=== PATIENT | female | born 1970 | race Hispanic/Latino ===

== ENCOUNTER 2021-03-13 19:46 | Inpatient (IN) | payer SELFPAY ==
[~2021-03-13] VITALS: Ht 162.6 cm; Wt 60.1 kg
[2021-03-13 19:56] VITALS: BP 131/73
[2021-03-13 20:33] LABS: ABG BASE EXCESS 3.7 mmol/L (-2.0-3.0); ABG HCO3 27.8 mmol/L (21.0-28.0); ABG OXYGEN SATURATION 94.6 % (95.0-99.0); ABG PCO2 40 mmHg (32-45)
[2021-03-13 20:44] LABS: BASOPHILS % (AUTO) 0.9 % (0.0-5.0); EOSINOPHILS % (AUTO) 9.3 % (0.0-8.0); HEMATOCRIT 45.6 % (36-48); LYMPHOCYTES % (AUTO) 39.3 % (21.0-51.0); MEAN CORPUSCULAR HEMOGLOBIN 28.8 pg (27.0-33.0); MEAN CORPUSCULAR HGB CONC 33.1 g/dL (32.0-36.0); MONOCYTES % (AUTO) 5.1 % (3.0-13.0); NEUTROPHILS % (AUTO) 45.3 % (40.0-77.0); PLATELET COUNT (AUTO) 228 K/uL (130-400); RED BLOOD CELL COUNT(AUTO) 5.24 MIL/uL (4.00-5.50); RED CELL DISTRIBUTION WIDTH 13.2 % (11.0-15.5); WHITE BLOOD COUNT (AUTO) 8.6 K/uL (4.8-10.8)
[2021-03-13] MEDS ORDERED: SOLU-MEDROL 125MG VIAL IVP ONE (21:00)
[2021-03-13 21:03] LABS: ALBUMIN 3.6 g/dL (3.5-5.0); CARBON DIOXIDE 29 mmol/L (21-32); CHLORIDE 103 mmol/L (101-111); CREATININE 1.1 mg/dL (0.5-1.5); GLOMERULAR FILTR. RATE CALC 56 mL/min (>60); GLUCOSE,RANDOM 182 mg/dL (70-105); SODIUM SERUM 142 mmol/L (136-145); UREA NITROGEN, BLOOD 16 mg/dL (7-18)
[2021-03-13 21:08] LABS: POTASSIUM 2.9 mmol/L (3.5-5.1)
[2021-03-13 21:10] LABS: ALANINE AMINOTRANSFERASE 21 U/L (12-78); ASPARTATE AMINOTRANSFERASE 17 U/L (10-37); BILIRUBIN,TOTAL 0.6 mg/dL (0.2-1.0); CREATINE KINASE, TOTAL 90 U/L (21-232); TOTAL PROTEIN, SERUM 6.6 g/dL (6.0-8.3)
[2021-03-13 21:11] LABS: CRP QUANTITATIVE < 2.00 mg/L (0.00-9.0)
[2021-03-13] MEDS: KCL 20 MEQ ERTAB PO ONE ×2 (21:25→22:20)
[2021-03-13] MEDS ORDERED: KCL 20 MEQ ERTAB PO ONE (21:30)
[2021-03-13] MEDS ORDERED: SOLU-MEDROL 125MG VIAL ONE (21:39)
[2021-03-13] MEDS ORDERED: ACETAMINOPHEN 325 MG TAB PO PRN ×2 (22:30)
[2021-03-13] MEDS ORDERED: ONDANSETRON 4MG INJ IV PRN (22:30)
[2021-03-13] MEDS ORDERED: NITROGLYCERIN 0.4 MG SL TAB SL PRN (22:30)
[2021-03-13 23:00] VITALS: BP 144/76
[2021-03-13] MEDS ORDERED: AZITHROMYCIN 500MG+NS 250ML 250 ML IV SCH (23:00)
[2021-03-13] MEDS ORDERED: AZITHROMYCIN 500MG VIAL IVPB SCH (23:00)
[2021-03-13] MEDS ORDERED: CEFTRIAXONE 1G VIAL IVP SCH (23:00)
[2021-03-13] MEDS ORDERED: 0.9% NACL 250ML IVPB SCH (23:00)
[2021-03-13] MEDS ORDERED: POTASSIUM CHLORIDE 10% ELIXIR 20 MEQ/15 ML UDCUP PO PRN (23:30)
[2021-03-13] MEDS ORDERED: MAGNESIUM 2GM PREMIX 50ML 50 ML IV SCH (23:30)
[2021-03-13] MEDS ORDERED: POTASSIUM CHLORIDE 20MEQ/100ML 100 ML IV PRN (23:30)
[2021-03-13] MEDS ORDERED: LIDOCAINE HCL-MPF 1% 2ML VIAL IV PRN (23:30)
[2021-03-13] MEDS: 0.9%NACL 1000ML 1,000 ML IV SCH (23:58)
[2021-03-14] VITALS (7 sets, daily range): BP systolic 108–150; BP diastolic 59–85
[2021-03-14] MEDS: IPRATROPIUM/ALBUTEROL SULFATE 3 ML SOLUTION IH SCH ×6 (01:54→21:56)
[2021-03-14] MEDS: KCL 20 MEQ ERTAB PO PRN ×2 (02:35→04:08)
[2021-03-14] MEDS: SOLU-MEDROL 40MG VIAL IVP SCH ×4 (03:45→21:11)
[2021-03-14 06:10] LABS: BASOPHILS % (AUTO) 0.4 % (0.0-5.0); EOSINOPHILS % (AUTO) 0.4 % (0.0-8.0); HEMATOCRIT 44.7 % (36-48); LYMPHOCYTES % (AUTO) 9.9 % (21.0-51.0); MEAN CORPUSCULAR HEMOGLOBIN 28.9 pg (27.0-33.0); MEAN CORPUSCULAR HGB CONC 32.4 g/dL (32.0-36.0); MEAN CORPUSCULAR VOLUME 89.2 fL (79-99); MONOCYTES % (AUTO) 0.9 % (3.0-13.0); PLATELET COUNT (AUTO) 224 K/uL (130-400); RED BLOOD CELL COUNT(AUTO) 5.01 MIL/uL (4.00-5.50); RED CELL DISTRIBUTION WIDTH 13.3 % (11.0-15.5); WHITE BLOOD COUNT (AUTO) 5.4 K/uL (4.8-10.8)
[2021-03-14 06:24] LABS: ALBUMIN 3.3 g/dL (3.5-5.0); BILIRUBIN,TOTAL 0.3 mg/dL (0.2-1.0); CREATININE 1.1 mg/dL (0.5-1.5); MAGNESIUM 2.1 mg/dL (1.80-2.40); POTASSIUM 4.1 mmol/L (3.5-5.1); TOTAL PROTEIN, SERUM 6.4 g/dL (6.0-8.3)
[2021-03-14] MEDS: LEVOFLOXACIN 500 MG/D5W 100 ML 100 ML IV SCH (06:58)
[2021-03-14] MEDS: FAMOTIDINE 20MG TAB PO SCH ×2 (07:48→21:11)
[2021-03-14] MEDS: ENOXAPARIN SODIUM 30 MG/0.3 ML SQ SCH (07:48)
[2021-03-14] MEDS: 0.9%NACL 1000ML 1,000 ML IV SCH (08:20)
[2021-03-14] MEDS ORDERED: PRED50TA2 PO (09:19)
[2021-03-14] MEDS ORDERED: ALBU18HF7 IH (09:19)
[2021-03-14] MEDS: INSULIN HUMULIN R 100 UNIT/ML 3ML SQ SCH ×2 (16:21→21:21)
[2021-03-15] VITALS (7 sets, daily range): BP systolic 120–152; BP diastolic 67–86
[2021-03-15] MEDS: IPRATROPIUM/ALBUTEROL SULFATE 3 ML SOLUTION IH SCH ×6 (01:23→22:24)
[2021-03-15] MEDS: SOLU-MEDROL 40MG VIAL IVP SCH ×3 (03:17→16:25)
[2021-03-15 04:10] LABS: BASOPHILS % (AUTO) 0.1 % (0.0-5.0); HEMATOCRIT 45.8 % (36-48); LYMPHOCYTES % (AUTO) 8.7 % (21.0-51.0); MEAN CORPUSCULAR HEMOGLOBIN 29.3 pg (27.0-33.0); MEAN CORPUSCULAR HGB CONC 32.3 g/dL (32.0-36.0); MEAN CORPUSCULAR VOLUME 90.7 fL (79-99); MONOCYTES % (AUTO) 2.2 % (3.0-13.0); NEUTROPHILS % (AUTO) 88.3 % (40.0-77.0); PLATELET COUNT (AUTO) 223 K/uL (130-400); RED BLOOD CELL COUNT(AUTO) 5.05 MIL/uL (4.00-5.50); RED CELL DISTRIBUTION WIDTH 13.2 % (11.0-15.5)
[2021-03-15 04:22] LABS: CREATININE 0.8 mg/dL (0.5-1.5); MAGNESIUM 2.1 mg/dL (1.80-2.40); PHOSPHORUS 3.1 mg/dL (2.5-4.9); POTASSIUM 3.7 mmol/L (3.5-5.1)
[2021-03-15 04:30] LABS: HEMOGLOBIN A1C 6.7 % (4.0-6.0)
[2021-03-15] MEDS: LEVOFLOXACIN 500 MG/D5W 100 ML 100 ML IV SCH (05:32)
[2021-03-15] MEDS: INSULIN HUMULIN R 100 UNIT/ML 3ML SQ SCH ×4 (06:08→20:53)
[2021-03-15] MEDS: FAMOTIDINE 20MG TAB PO SCH ×2 (09:02→20:49)
[2021-03-15] MEDS: KCL 20 MEQ ERTAB PO PRN ×2 (09:02→13:27)
[2021-03-15] MEDS: ENOXAPARIN SODIUM 30 MG/0.3 ML SQ SCH (09:03)
[2021-03-15] MEDS: MONTELUKAST SODIUM 10 MG TAB PO SCH (10:59)
[2021-03-15] MEDS: BUDESONIDE 0.5 MG/2 ML INH IH SCH (18:23)
[2021-03-15] MEDS ORDERED: MONTELUKAST SODIUM 10 MG TAB PO SCH (21:00)
[2021-03-16] MEDS: SOLU-MEDROL 40MG VIAL IVP SCH ×2 (00:27→08:28)
[2021-03-16] MEDS: IPRATROPIUM/ALBUTEROL SULFATE 3 ML SOLUTION IH SCH ×3 (03:01→14:46)
[2021-03-16 03:58] VITALS: BP 120/72
[2021-03-16] MEDS: LEVOFLOXACIN 500 MG/D5W 100 ML 100 ML IV SCH (05:39)
[2021-03-16] MEDS: INSULIN HUMULIN R 100 UNIT/ML 3ML SQ SCH ×3 (06:10→17:25)
[2021-03-16 06:43] LABS: BASOPHILS % (AUTO) 0.1 % (0.0-5.0); HEMATOCRIT 46.5 % (36-48); LYMPHOCYTES % (AUTO) 7.4 % (21.0-51.0); MEAN CORPUSCULAR HEMOGLOBIN 28.9 pg (27.0-33.0); MEAN CORPUSCULAR VOLUME 90.3 fL (79-99); MONOCYTES % (AUTO) 1.8 % (3.0-13.0); PLATELET COUNT (AUTO) 209 K/uL (130-400); RED BLOOD CELL COUNT(AUTO) 5.15 MIL/uL (4.00-5.50); RED CELL DISTRIBUTION WIDTH 13.5 % (11.0-15.5); WHITE BLOOD COUNT (AUTO) 11.5 K/uL (4.8-10.8)
[2021-03-16 07:08] LABS: CREATININE 0.7 mg/dL (0.5-1.5); POTASSIUM 4.1 mmol/L (3.5-5.1)
[2021-03-16 07:20] VITALS: BP 146/81
[2021-03-16] MEDS: FAMOTIDINE 20MG TAB PO SCH (08:28)
[2021-03-16] MEDS: MONTELUKAST SODIUM 10 MG TAB PO SCH (08:28)
[2021-03-16] MEDS: ENOXAPARIN SODIUM 30 MG/0.3 ML SQ SCH (08:29)
[2021-03-16 11:10] VITALS: BP 138/87
[2021-03-16] MEDS: BUDESONIDE 0.5 MG/2 ML INH IH SCH (11:20)
[2021-03-16] MEDS: PREDNISONE 20 MG TABLET PO SCH ×2 (12:00→18:24)
[2021-03-16] MEDS ORDERED: BENZONATATE 100 MG CAPSULE PO PRN (12:30)
[2021-03-16 15:15] VITALS: BP 136/85
[2021-03-16] MEDS ORDERED: BENZ-70 PO (15:21)
[2021-03-16] MEDS ORDERED: MONT10TA21 PO (15:21)
[2021-03-16] MEDS ORDERED: FLUT1AER IH (15:21)
[2021-03-16] MEDS ORDERED: ALBU8.5H8 IH (15:21)
[2021-03-16] MEDS ORDERED: PRED20B PO (15:21)
[2021-03-16] MEDS ORDERED: FAMO20TA8 PO (15:21)
[2021-03-16] MEDS ORDERED: METF-526 PO (15:21)
== END 2021-03-16 18:48 | disposition home or self-care (01) | DRG 871 ==
LOC: EDH 19:46 → EDHIP 22:24 → 4CH 03-14 02:02
PROVIDERS: ADMIT Hospitalist; ATTEND Hospitalist
DX: A41.9 Sepsis, unspecified organism (principal); J18.9 Pneumonia, unspecified organism; J96.01 Acute respiratory failure with hypoxia; J45.902 Unspecified asthma with status asthmaticus; R65.20 Severe sepsis without septic shock; E83.42 Hypomagnesemia; E87.6 Hypokalemia; E11.65 Type 2 diabetes mellitus with hyperglycemia; Z20.822 Contact with and (suspected) exposure to COVID-19; Z88.8 Allergy status to other drugs, medicaments and biological substances; Z87.891 Personal history of nicotine dependence; Z82.49 Family history of ischemic heart disease and other diseases of the circulatory system
CPT/HCPCS: 36415; 36600; 71045; 80048; 80053; 82550; 82803; 82948; 83036; 83605; 83735; 84100; 84145; 84484; 85025; 85378; 86140; 87040; 87635; 87804; 93005; 94640; 94664; C9803; G0378; J0456; J0696; J1650; J1815; J1956; J2920; J2930

== ENCOUNTER 2021-04-20 16:22 | Inpatient (IN) | payer BC ==
[~2021-04-20] VITALS: Ht 162.6 cm; Wt 60.9 kg
[~2021-04-20 16:22] MED LIST: ALBU8.5H8 IH; BENZ-70 PO; FAMO20TA8 PO; FLUT1AER IH; METF-526 PO; MONT10TA21 PO; PRED20B PO
[2021-04-20] MEDS ORDERED: IPRATROPIUM/ALBUTEROL SULFATE 3 ML SOLUTION IH ONE ×3 (16:39→16:40)
[2021-04-20 16:49] LABS: ABG BASE EXCESS 3.2 mmol/L (-2.0-3.0); ABG OXYGEN SATURATION 94.4 % (95.0-99.0); ABG PCO2 34 mmHg (32-45)
[2021-04-20] MEDS ORDERED: PHARMACY COMMUNICATION MISC SCH (17:00)
[2021-04-20] MEDS ORDERED: DEXAMETHASONE 10MG/ML 1ML VIAL 0 MG in 0.9%NACL 50ML 50 ML IV SCH (17:00)
[2021-04-20 17:19] LABS: BASOPHILS % (AUTO) 1.1 % (0.0-5.0); EOSINOPHILS % (AUTO) 17.2 % (0.0-8.0); HEMATOCRIT 48.7 % (36-48); LYMPHOCYTES % (AUTO) 20.1 % (21.0-51.0); MEAN CORPUSCULAR HEMOGLOBIN 28.9 pg (27.0-33.0); MEAN CORPUSCULAR HGB CONC 33.1 g/dL (32.0-36.0); MEAN CORPUSCULAR VOLUME 87.3 fL (79-99); MONOCYTES % (AUTO) 4.1 % (3.0-13.0); NEUTROPHILS % (AUTO) 57.2 % (40.0-77.0); PLATELET COUNT (AUTO) 242 K/uL (130-400); RED BLOOD CELL COUNT(AUTO) 5.58 MIL/uL (4.00-5.50); RED CELL DISTRIBUTION WIDTH 13.2 % (11.0-15.5); WHITE BLOOD COUNT (AUTO) 12.3 K/uL (4.8-10.8)
[2021-04-20] MEDS ORDERED: DEXAMETHASONE 10MG/ML 1ML VIAL 10 MG in 0.9%NACL 50ML 50 ML IV SCH (17:30)
[2021-04-20] MEDS ORDERED: DEXAMETHASONE SOD PHOSPHATE 10MG/ML 1ML VIAL IV SCH (17:30)
[2021-04-20 17:33] LABS: PROTHROMBIN TIME 10.9 SEC (9.6-11.6)
[2021-04-20 17:34] LABS: CREATININE 0.8 mg/dL (0.5-1.5); POTASSIUM 3.9 mmol/L (3.5-5.1)
[2021-04-20 17:41] LABS: ALBUMIN 4.1 g/dL (3.5-5.0); BILIRUBIN,TOTAL 0.7 mg/dL (0.2-1.0); TOTAL PROTEIN, SERUM 7.6 g/dL (6.0-8.3)
[2021-04-20] MEDS ORDERED: 0.9%NACL 50ML 50 ML IV ONE (17:42)
[2021-04-20 17:47] LABS: B-TYPE NATRIURETIC PEPTIDE 6 pg/mL (0-100)
[2021-04-20] MEDS ORDERED: ALBU1.252 NEB (18:20)
[2021-04-20] MEDS ORDERED: ALBU18HF7 IH (18:20)
[2021-04-20] MEDS ORDERED: PRED20TA3 PO (18:20)
[2021-04-20] MEDS ORDERED: ACETAMINOPHEN 325 MG TAB PO PRN ×2 (19:30)
[2021-04-20] MEDS ORDERED: NITROGLYCERIN 0.4 MG SL TAB SL PRN (19:30)
[2021-04-20] MEDS ORDERED: 0.9%NACL 1000ML 1,000 ML IV SCH (19:30)
[2021-04-20] MEDS ORDERED: IPRATROPIUM/ALBUTEROL SULFATE 3 ML SOLUTION IH PRN (19:30)
[2021-04-20] MEDS ORDERED: ONDANSETRON 4MG INJ IV PRN (19:30)
[2021-04-20] MEDS ORDERED: MAGNESIUM 2GM PREMIX 50ML 50 ML IV SCH (20:30)
[2021-04-20] MEDS: 0.9%NACL 1000ML 1,000 ML IV SCH (20:33)
[2021-04-20] MEDS: IPRATROPIUM/ALBUTEROL SULFATE 3 ML SOLUTION IH SCH (22:00)
[2021-04-20] MEDS: FAMOTIDINE 20MG TAB PO SCH (22:05)
[2021-04-21] MEDS: IPRATROPIUM/ALBUTEROL SULFATE 3 ML SOLUTION IH SCH ×4 (02:13→19:17)
[2021-04-21 04:59] LABS: BASOPHILS % (AUTO) 0.3 % (0.0-5.0); EOSINOPHILS % (AUTO) 0.5 % (0.0-8.0); HEMATOCRIT 45.3 % (36-48); MEAN CORPUSCULAR HEMOGLOBIN 28.9 pg (27.0-33.0); MEAN CORPUSCULAR HGB CONC 32.5 g/dL (32.0-36.0); MONOCYTES % (AUTO) 2.4 % (3.0-13.0); NEUTROPHILS % (AUTO) 86.1 % (40.0-77.0); PLATELET COUNT (AUTO) 216 K/uL (130-400); RED BLOOD CELL COUNT(AUTO) 5.09 MIL/uL (4.00-5.50); RED CELL DISTRIBUTION WIDTH 13.1 % (11.0-15.5); WHITE BLOOD COUNT (AUTO) 8.8 K/uL (4.8-10.8)
[2021-04-21 05:00] LABS: APPEARANCE,URINE Clear (CLEAR); BILIRUBIN,URINE Negative (NEGATIVE); COLOR,URINE Yellow (YELLOW); GLUCOSE, URINE (UA) 500 mg/dL (NEGATIVE); KETONES,URINE Negative (NEGATIVE); LEUKOCYTE ESTERASE ,URINE Moderate (NEGATIVE); NITRATE,URINE Negative (NEGATIVE); OCCULT BLOOD,URINE Negative (NEGATIVE); PROTEIN,URINE Negative (NEGATIVE); UROBILINOGEN,URINE 0.2 mg/dL (0.2-1.0)
[2021-04-21] MEDS ORDERED: SOLU-MEDROL 40MG VIAL IVP SCH (05:00)
[2021-04-21 05:11] LABS: ALBUMIN 3.4 g/dL (3.5-5.0); BILIRUBIN,TOTAL 0.6 mg/dL (0.2-1.0); CREATININE 0.6 mg/dL (0.5-1.5); MAGNESIUM 2.1 mg/dL (1.80-2.40); POTASSIUM 3.9 mmol/L (3.5-5.1); TOTAL PROTEIN, SERUM 6.8 g/dL (6.0-8.3)
[2021-04-21 05:13] LABS: BACTERIA,URINE Rare /HPF (None Seen); RBC,URINE None Seen /HPF (0-1); SQUAMOUS EPITHELIAL CELL,UR Few /HPF (0-2); YEAST,URINE BUDDING None Seen /HPF (None Seen)
[2021-04-21] MEDS: 0.9%NACL 1000ML 1,000 ML IV SCH (05:30)
[2021-04-21 08:23] VITALS: BP 121/84
[2021-04-21] MEDS ORDERED: ENOXAPARIN SODIUM 30 MG/0.3 ML SQ SCH (09:00)
[2021-04-21] MEDS: FAMOTIDINE 20MG TAB PO SCH (10:15)
[2021-04-21 12:00] VITALS: BP 142/81
[2021-04-21] MEDS ORDERED: BUDESONIDE 0.5 MG/2 ML INH IH SCH (14:00)
[2021-04-21] MEDS: SOLU-MEDROL 40MG VIAL IVP SCH ×2 (14:12→20:29)
[2021-04-21 16:00] VITALS: BP 125/74
[2021-04-21] MEDS ORDERED: ALBUTEROL 0.083% 2.5 MG/3 ML INH IH SCH (18:00)
[2021-04-21] MEDS: BUDESONIDE 0.5 MG/2 ML INH IH SCH (19:46)
[2021-04-21 20:00] VITALS: BP 159/73
[2021-04-21 23:20] VITALS: BP 143/86
[2021-04-21 23:51] VITALS: BP 143/86
[2021-04-22] VITALS (7 sets, daily range): BP systolic 126–148; BP diastolic 78–95
[2021-04-22] MEDS: IPRATROPIUM/ALBUTEROL SULFATE 3 ML SOLUTION IH SCH ×2 (00:01→06:21)
[2021-04-22] MEDS ORDERED: SODIUM CHLORIDE 3% FOR INHALATION 4 ML/AMP VIAL.NEB IH ONE ×2 (00:32→06:32)
[2021-04-22] MEDS: SOLU-MEDROL 40MG VIAL IVP SCH ×3 (05:04→20:37)
[2021-04-22] MEDS: BUDESONIDE 0.5 MG/2 ML INH IH SCH ×3 (06:21→22:03)
[2021-04-22] MEDS: PANTOPRAZOLE 40 MG TAB DR PO SCH (09:01)
[2021-04-22] MEDS: MONTELUKAST SODIUM 10 MG TAB PO SCH (09:01)
[2021-04-22] MEDS: ENOXAPARIN SODIUM 40 MG/0.4 ML SYRINGE SQ SCH (09:02)
[2021-04-22] MEDS ORDERED: GUAIFENESIN-CODEINE 5 ML SYRUP PO PRN (10:30)
[2021-04-22] MEDS: ALBUTEROL 0.083% 2.5 MG/3 ML INH IH SCH ×2 (11:26→18:44)
[2021-04-22] MEDS: IPRATROPIUM 0.5 MG/2.5 ML INH IH SCH ×2 (14:17→21:55)
[2021-04-23] MEDS: ALBUTEROL 0.083% 2.5 MG/3 ML INH IH SCH ×5 (00:29→23:36)
[2021-04-23] MEDS: ALBUTEROL 0.083% 2.5 MG/3 ML INH IH PRN (03:14)
[2021-04-23 03:41] VITALS: BP 148/84
[2021-04-23] MEDS: SOLU-MEDROL 40MG VIAL IVP SCH ×3 (05:44→22:28)
[2021-04-23] MEDS: IPRATROPIUM 0.5 MG/2.5 ML INH IH SCH ×3 (06:20→23:36)
[2021-04-23] MEDS: BUDESONIDE 0.5 MG/2 ML INH IH SCH ×3 (06:21→18:27)
[2021-04-23 08:21] VITALS: BP 140/89
[2021-04-23] MEDS: MONTELUKAST SODIUM 10 MG TAB PO SCH (08:58)
[2021-04-23] MEDS: PANTOPRAZOLE 40 MG TAB DR PO SCH (08:58)
[2021-04-23] MEDS: ENOXAPARIN SODIUM 40 MG/0.4 ML SYRINGE SQ SCH (08:59)
[2021-04-23 11:25] VITALS: BP 148/93
[2021-04-23] MEDS: AZITHROMYCIN 250 MG TABLET PO SCH (15:12)
[2021-04-23 15:52] VITALS: BP 128/91
[2021-04-23 20:00] VITALS: BP 137/99
[2021-04-24 00:06] VITALS: BP 117/75
[2021-04-24 04:00] VITALS: BP 123/73
[2021-04-24 05:07] LABS: BASOPHILS % (AUTO) 0.1 % (0.0-5.0); HEMATOCRIT 46.8 % (36-48); LYMPHOCYTES % (AUTO) 10.2 % (21.0-51.0); MEAN CORPUSCULAR HEMOGLOBIN 28.9 pg (27.0-33.0); MEAN CORPUSCULAR HGB CONC 32.7 g/dL (32.0-36.0); MEAN CORPUSCULAR VOLUME 88.3 fL (79-99); MONOCYTES % (AUTO) 3.6 % (3.0-13.0); NEUTROPHILS % (AUTO) 85.3 % (40.0-77.0); PLATELET COUNT (AUTO) 215 K/uL (130-400); RED CELL DISTRIBUTION WIDTH 13.2 % (11.0-15.5); WHITE BLOOD COUNT (AUTO) 11.5 K/uL (4.8-10.8)
[2021-04-24 05:23] LABS: CREATININE 0.7 mg/dL (0.5-1.5); POTASSIUM 3.8 mmol/L (3.5-5.1)
[2021-04-24] MEDS: SOLU-MEDROL 40MG VIAL IVP SCH ×3 (05:31→18:54)
[2021-04-24] MEDS: ALBUTEROL 0.083% 2.5 MG/3 ML INH IH SCH ×4 (06:46→23:05)
[2021-04-24] MEDS: BUDESONIDE 0.5 MG/2 ML INH IH SCH ×3 (06:46→18:57)
[2021-04-24] MEDS: IPRATROPIUM 0.5 MG/2.5 ML INH IH SCH ×4 (06:46→23:05)
[2021-04-24 08:01] VITALS: BP 148/89
[2021-04-24] MEDS: MONTELUKAST SODIUM 10 MG TAB PO SCH (08:39)
[2021-04-24] MEDS: ENOXAPARIN SODIUM 40 MG/0.4 ML SYRINGE SQ SCH (08:39)
[2021-04-24] MEDS: PANTOPRAZOLE 40 MG TAB DR PO SCH (08:39)
[2021-04-24 10:53] VITALS: BP 137/83
[2021-04-24] MEDS: AZITHROMYCIN 250 MG TABLET PO SCH (13:42)
[2021-04-24 16:14] VITALS: BP 138/77
[2021-04-24] MEDS: ALBUTEROL 0.083% 2.5 MG/3 ML INH IH PRN (18:57)
[2021-04-24 20:00] VITALS: BP 132/75
[2021-04-25] VITALS: BP 152/79
[2021-04-25] MEDS: SOLU-MEDROL 40MG VIAL IVP SCH ×2 (00:17→06:05)
[2021-04-25 04:00] VITALS: BP 95/64
[2021-04-25] MEDS: BUDESONIDE 0.5 MG/2 ML INH IH SCH ×2 (06:50→14:00)
[2021-04-25] MEDS: ALBUTEROL 0.083% 2.5 MG/3 ML INH IH SCH ×2 (06:50→11:30)
[2021-04-25] MEDS: IPRATROPIUM 0.5 MG/2.5 ML INH IH SCH ×2 (06:50→11:30)
[2021-04-25 07:57] VITALS: BP 147/81
[2021-04-25] MEDS ORDERED: PRED20TA3 PO (09:34)
[2021-04-25] MEDS ORDERED: AZIT500T4 PO (09:34)
[2021-04-25] MEDS ORDERED: MONT10TA32 PO (09:34)
[2021-04-25] MEDS: PANTOPRAZOLE 40 MG TAB DR PO SCH (09:57)
[2021-04-25] MEDS: ENOXAPARIN SODIUM 40 MG/0.4 ML SYRINGE SQ SCH (09:57)
[2021-04-25] MEDS: MONTELUKAST SODIUM 10 MG TAB PO SCH (09:57)
[2021-04-25 12:52] VITALS: BP 137/80
== END 2021-04-25 02:20 | disposition home or self-care (01) | DRG 189 ==
LOC: EDH 16:22 → EDHIP 19:08 → 3BH 04-21 08:27
PROVIDERS: ADMIT Hospitalist; ATTEND Hospitalist
DX: J96.01 Acute respiratory failure with hypoxia (principal); J45.902 Unspecified asthma with status asthmaticus; E87.2 Acidosis; I49.3 Ventricular premature depolarization; Z20.822 Contact with and (suspected) exposure to COVID-19; D72.829 Elevated white blood cell count, unspecified; Z87.891 Personal history of nicotine dependence; Z88.8 Allergy status to other drugs, medicaments and biological substances; Z82.49 Family history of ischemic heart disease and other diseases of the circulatory system; Z82.0 Family history of epilepsy and other diseases of the nervous system
CPT/HCPCS: 36415; 36600; 71045; 80048; 80053; 81001; 82803; 82948; 83605; 83735; 83880; 84145; 84484; 85025; 85610; 87040; 87071; 87088; 87205; 87486; 87581; 87633; 87635; 87798; 87804; 93005; 94640; 94664; 99291; C9803; G0378; J1100; J1650; J2920; J7030

== ENCOUNTER 2021-08-11 12:11 | Emergency (ER) | payer SELFPAY ==
[~2021-08-11 12:11] MED LIST changes: +ALBU1.252 NEB; +ALBU18HF7 IH; +AZIT500T4 PO; -BENZ-70 PO; +MONT-39 PO; -PRED20B PO; +PRED20TA3 PO
== END 2021-08-11 12:53 | disposition home or self-care (01) ==
LOC: EDH 12:11
DX: R07.89 Other chest pain (principal); Z53.21 Procedure and treatment not carried out due to patient leaving prior to being seen by health care provider
CPT/HCPCS: 93005